=== PATIENT | male | born 1950 | race Caucasian/White ===

== ENCOUNTER 2020-02-05 23:26 | Emergency (ER) | payer OTHER ==
[~2020-02-05] VITALS: Ht 185.4 cm; Wt 86.2 kg
[2020-02-05 23:34] VITALS: BP_SYST 122
[2020-02-05] MEDS ORDERED: NACL 0.9% 1,000 ML IV ONE (23:50)
[2020-02-06] MEDS ORDERED: PANTOPRAZOLE SODIUM 40 MG/VIAL (PROTONIX) IVP ONE
[2020-02-06] MEDS ORDERED: DIPHENHYDRAMINE INJ 50 MG/ML VIAL IVP ONE
[2020-02-06 00:25] LABS: BASOPHILS # (AUTO) 0.1 K/uL (0.0-0.2); HEMOGLOBIN 11.3 g/dL (14.0-18.0); MEAN CORPUSCULAR VOLUME 79 fL (79.0-98.0); NEUTROPHILS # (AUTO) 5.4 K/uL (1.8-7.7)
[2020-02-06 00:29] LABS: BASOPHILS % (AUTO) 1.1 % (0.0-2.0); EOSINOPHILS # (AUTO) 0.3 K/uL (0.0-0.4); HEMATOCRIT 35.2 % (36-54); LYMPHOCYTES % (AUTO) 12.2 % (20.5-51.5); MEAN CORPUSCULAR HEMOGLOBIN 25 pg (27-31); MEAN CORPUSCULAR HGB CONC 32 % (32-36); MONOCYTES % (AUTO) 13.4 % (1.7-9.3); NEUTROPHILS % (AUTO) 69.3 % (40.0-70.0); PLATELET COUNT (AUTO) 330 K/uL (130-430); RED BLOOD CELL COUNT(AUTO) 4.48 MIL/uL (4.2-6.2); RED CELL DISTRIBUTION WIDTH 15.5 % (9.0-15.0); WHITE BLOOD COUNT (AUTO) 7.8 K/uL (4.8-10.8)
[2020-02-06 00:34] LABS: CALCIUM 8.3 mg/dL (8.4-11.0); CREATININE 2.16 mg/dL (0.55-1.30); POTASSIUM 4.8 mmol/L (3.5-5.1)
[2020-02-06 00:40] LABS: ALBUMIN 2.3 g/dL (3.4-4.8); TOTAL BILIRUBIN 0.6 mg/dL (0.0-1.0)
[2020-02-06] MEDS ORDERED: MORPHINE 2 MG/ML INJ. SYRINGE IVP ONE ×3 (03:30)
[2020-02-06 03:44] VITALS: BP_SYST 138
== END 2020-02-06 03:44 | disposition home or self-care (01) ==
LOC: SED 23:26
DX: N19 Unspecified kidney failure (principal); D64.9 Anemia, unspecified; R16.0 Hepatomegaly, not elsewhere classified; R10.84 Generalized abdominal pain; I10 Essential (primary) hypertension; Z87.891 Personal history of nicotine dependence
CPT/HCPCS: 36415; 74176; 80053; 83690; 85025; 96374; 96375; 96376; 99285; C9113; J1200; J2270